=== PATIENT | female | born 1980 | race Caucasian/White ===

== ENCOUNTER 2017-10-16 10:58 | Emergency (ER) | payer BC ==
[2017-10-16 11:47] VITALS: BP 124/71
--- NOTE | 2017-10-16 11:58 | UC ---
Respiratory Complaint HPI - HPI Summary HPI Summary: productive cough x 3 days yellow sputum, + fever, chills, nasal congestion + sob, wheezing - History of Current Complaint Chief Complaint: UCRespiratory Stated Complaint: ST/FEVER/COUGH/SOB Time Seen by Provider: 10/16/17 11:47 Hx Obtained From: Patient Hx Last Menstrual Period: 10/08/17 ?: No Onset/Duration: Gradual Onset, Lasting Days - 3, Still Present Timing: Constant Severity Initially: Moderate Severity Currently: Moderate Pain Intensity: 0 Character: Cough: Productive Aggravating Factors: Exertion, Deep Breaths Alleviating Factors: Bronchodilator Associated Signs And Symptoms: Positive: Dyspnea, Fever, Chills, Wheezing, URI, Nasal Congestion - Allergies/Home Medications Allergies/Adverse Reactions: Allergies Allergy/AdvReac Type Severity Reaction Status Date / Time No Known Allergies Allergy Verified 10/16/17 11:36 Home Medications: Home Medications Sertraline* [Zoloft*] 25 mg PO DAILY 10/16/17 [History Confirmed 10/16/17] PMH/Surg Hx/FS Hx/Imm Hx Respiratory History: Asthma - Surgical History Surgical History: None Surgery Procedure, Year, and Place: WISDOM TEETH 2008 - Family History Known Family History: Negative: Diabetes - Social History Alcohol Use: Occasionally Substance Use Type: None Smoking Status (MU): Never Smoked Tobacco - Immunization History Most Recent Influenza Vaccination: NOT YET THIS SEASON Review of Systems Constitutional: Fever, Chills, Fatigue Skin: Negative Eyes: Negative ENT: Nasal Discharge Respiratory: Shortness Of Breath, Cough Cardiovascular: Negative Gastrointestinal: Negative Is Patient Immunocompromised?: No All Other Systems Reviewed And Are Negative: Yes Physical Exam Triage Information Reviewed: Yes Appearance: Well-Appearing, No Pain Distress, Well-Nourished Vital Signs: Initial Vital Signs Temp 98.7 F 10/16/17 11:34 Pulse 74 10/16/17 11:34 Resp 18 10/16/17 11:34 BP 124/71 10/16/17 11:34 Pulse Ox 100 10/16/17 11:34 Vital Signs Reviewed: Yes Eye Exam: Normal Eyes: Positive: Conjunctiva Clear ENT: Positive: Normal ENT inspection, Hearing grossly normal, Pharyngeal erythema, Nasal drainage, TMs normal Neck exam: Normal Neck: Positive: Supple, Nontender, No Lymphadenopathy Respiratory: Positive: Chest non-tender, Lungs clear, Normal breath sounds Cardiovascular Exam: Normal Cardiovascular: Positive: RRR, No Murmur, Pulses Normal Skin Exam: Normal UC Diagnostic Evaluation - Laboratory O2 Sat by Pulse Oximetry: 100 Respiratory Course/Dx - Differential Dx/Diagnosis Provider Diagnoses: Bronchitis Discharge - Discharge Plan Condition: Stable Disposition: HOME Prescriptions: Albuterol HFA INHALER* [Ventolin HFA Inhaler*] 1 puff INH Q4H PRN #1 mdi PRN Reason: Wheezing Azithromycin TAB* [Zithromax TAB (Z-AMIE) 250 mg #6 tabs] 2 tab PO .TODAY, THEN 1 DAILY #1 amie Patient Education Materials: Acute Bronchitis (ED) Referrals: Partha Pastrana PA [Primary Care Provider] - 7 Days
== END 2017-10-16 12:00 | disposition home or self-care (01) ==
LOC: UCCORT 10:58
DX: J40 Bronchitis, not specified as acute or chronic (principal)
CPT/HCPCS: 99212; G0463

== ENCOUNTER 2018-09-07 09:30 | Emergency (ER) | payer BC ==
[2018-09-07 09:59] VITALS: BP 119/70
--- NOTE | 2018-09-07 10:59 | UC ---
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 " -She has prior history of asthma but is very well controlled. Never needed a daily maintenance inhaler. Doesn't even know where her albuterol inhaler as she hasn't used it and a very long time. Denies any fever greater than 99. Started coughing 5-6 days ago but wheezing did not start until last evening. Symptoms have not gotten any worse, but not better. She feels fine other than that. -Denies ear pain, denies sore throat, denies sinus pain. Denies nasal congestion. She does note that her eyes hurt when she moves them around. She had pneumonia last summer and symptoms are not similar. -Here with her 6-year-old son. - History of Current Complaint Chief Complaint: UCRespiratory Stated Complaint: POSS. PNEUMONIA Time Seen by Provider: 09/07/18 10:47 Hx Last Menstrual Period: 08/14/18 Pain Intensity: 0 - Allergies/Home Medications Allergies/Adverse Reactions: Allergies Allergy/AdvReac Type Severity Reaction Status Date / Time No Known Allergies Allergy Verified 09/07/18 09:56 Home Medications: Home Medications NK [No Home Medications Reported] 09/07/18 [History Confirmed 09/07/18] PMH/Surg Hx/FS Hx/Imm Hx Previously Healthy: Yes - Surgical History Surgical History: None Surgery Procedure, Year, and Place: WISDOM TEETH 2008 - Family History Known Family History: Negative: Diabetes - Social History Alcohol Use: Rare Substance Use Type: None Smoking Status (MU): Never Smoked Tobacco - Immunization History Most Recent Influenza Vaccination: NOT YET THIS SEASON Review of Systems All Other Systems Reviewed And Are Negative: Yes Constitutional: Positive: Negative Skin: Positive: Negative Eyes: Positive: Negative ENT: Positive: Negative Respiratory: Positive: Cough Cardiovascular: Positive: Negative Gastrointestinal: Positive: Negative Genitourinary: Positive: Negative Motor: Positive: Negative Neurovascular: Positive: Negative Musculoskeletal: Positive: Negative Neurological: Positive: Negative Psychological: Positive: Negative Is Patient Immunocompromised?: No Physical Exam Triage Information Reviewed: Yes Appearance: Well-Appearing, No Pain Distress, Well-Nourished Vital Signs: Initial Vital Signs Temp 98.3 F 09/07/18 09:55 Pulse 73 09/07/18 09:55 Resp 16 09/07/18 09:55 BP 119/70 09/07/18 09:55 Pulse Ox 100 09/07/18 09:55 Vital Signs Reviewed: Yes Eye Exam: Normal ENT Exam: Normal ENT: Positive: Pharynx normal - mild PND., TMs normal, Uvula midline. Negative : Nasal congestion, Nasal drainage, TM bulging, TM dull, TM red, Tonsillar swelling, Tonsillar exudate, Hoarse voice, Sinus tenderness Dental Exam: Normal Neck exam: Normal Neck: Positive: Supple, Nontender, No Lymphadenopathy Respiratory Exam: Normal Respiratory: Positive: Lungs clear, No respiratory distress, No accessory muscle use, Decreased breath sounds - minimal BL. Negative: Crackles, Rhonchi, Stridor, Wheezing Cardiovascular Exam: Normal Cardiovascular: Positive: RRR, No Murmur, Pulses Normal Abdomen Description: Positive: Nontender, Soft Musculoskeletal Exam: Normal Neurological Exam: Normal Psychological Exam: Normal Skin Exam: Normal UC Diagnostic Evaluation - Laboratory O2 Sat by Pulse Oximetry: 100 Respiratory Course/Dx - Course Course Of Treatment: mild viral bronchitis w/ sligh exacerbation of asthma. - Differential Dx/Diagnosis Differential Diagnosis/HQI/PQRI: Bronchitis, Influenza, Laryngitis, Sinusitis Provider Diagnosis: Bronchitis Discharge - Sign-Out/Discharge Documenting (check all that apply): Patient Departure All imaging exams completed and their final reports reviewed: No Studies - Discharge Plan Condition: Stable Disposition: HOME Patient Education Materials: Asthma (ED), Acute Bronchitis (ED) Referrals: Kiran Crane MD [Primary Care Provider] - Additional Instructions: There is no evidence for bacterial pneumonia. You have bronchitis that is aggravating your asthma slightly. You should use eh albuterol every 4-6 hrs to help your symptoms. Follow up with your PCP in 1-2 wks, but sooner if you develop any fevers or respiratory distress. - Billing Disposition and Condition Condition: STABLE Disposition: Home
== END 2018-09-07 11:13 | disposition home or self-care (01) ==
LOC: UCCORT 09:30
DX: J40 Bronchitis, not specified as acute or chronic (principal)
CPT/HCPCS: 99211; G0463